=== PATIENT | male | born 1955 | race Caucasian/White ===

== ENCOUNTER → 2016-12-26 | Outpatient (CLI) | payer MEDICARE, BC, MEDICAID ==
[~2016-12-26] MED LIST: ASPIRIN325 MG PO; BRILINTA90 MG PO; CALCIUM500 MG PO; CELEBREX200 MG PO; CPAP INH; CRESTOR40 MG PO; DIOVAN40 MG PO; FEOSOL325 MG PO; K-TAB ER20 MEQ PO; LOVAZA1 GM PO; NEXIUM40 MG PO; PLAVIX75 MG PO; PRECOSE25 MG PO; STOOL SOFTENER100 MG PO; THERAGRAN-M1 TAB PO; TYLENOL EXTRA500 MG PO; VITAMIN D-32000 UNI1 PO; ZETIA10 MG PO
[2016-12-26 15:11] LABS: BASOPHIL # 0.1 K/uL (0.0-0.2); BASOPHIL % 1.1 %; EOSINOPHIL # 0.1 K/uL (0.0-0.5); HEMOGLOBIN 15.4 g/dL (11.0-16.0); IMMATURE GRANULOCYTE % 0.2 %; LYMPHOCYTE # 1.6 K/uL (0.8-4.0); LYMPHOCYTE % 29.2 %; MCH 30.7 pg (27.0-34.0); MCV 96.2 fl (83.0-98.0); MONOCYTE # 0.4 K/uL (0.0-1.0); MONOCYTE % 7.9 %; MPV 9.7 fl (9.4-12.4); NEUTROPHIL # (ANC) 3.2 K/uL (1.4-9.0); NEUTROPHIL % 59.6 %; NRBC % 0 /100WBC (0-0.00); RBC 5.02 M/uL (3.50-5.50); RDW-CV 13.7 % (11.9-14.6); WBC 5.4 K/uL (4.0-11.0)
[2016-12-26 15:12] LABS: HEMATOCRIT 48.3 % (37.0-53.0); MCHC 31.9 gm/dL (32.0-36.5); PLATELET COUNT 222 K/uL (150-450)
== END | disposition disaster alternative care site (69) ==
LOC: LCNC 15:08
PROVIDERS: Internal Medicine Interventional Cardiology
DX: R53.83 Other fatigue (principal)

== ENCOUNTER → 2016-12-30 | Outpatient (CLI) | payer MEDICARE, BC, MEDICAID ==
--- NOTE | ~2016-12-30 | ESTC ---
Cardiac Perfusion Imaging Demographics Patient Name DONNY Martinez Gender Male Patient Number [id number] Race Visit Number [id number] [place] [id number] Room Number Accession Number [id number] Height Date of 1955 Weight Age 61 year(s) BSA Referring Physician Lai Martinez MD BMI Interpreting Lai Martinez MD Date of study 12/30/2016 Physician Supervising /MLP Corby Davis APRN NM Technologist Ordering Physician Lai Martinez MD Stress Aleksandrtislisa Bowen RVT, electronic technician RDCS Stress ECG Reading Corby Davis APRN Nurse Jimenez Alvarado RN Physician The procedure was explained in detail to the patient. Risks, complications and alternative treatments were reviewed. Written consent was obtained. Medications Reviewed with Patient prior to Procedure. Procedure Procedure Type: Nuclear Stress Test:Exercise, Cardiolite Stress Test Procedure Start time: 12/30/2016 00:00 Indications: Chest pain. Risk Factors The patient risk factors include:prior PCI on 09/13/2016;prior CABG on 08/02/2010;family history of premature CAD. Conclusions Summary Cardiolite SPECT images demonstrate homogenous uptake of radioactive tracer. There is no evidence of inducible reversible defect and no evidence of underlying fixed defect. Normal TID ratio Gated images demonstrate normal left ventricular systolic function without inducible wall motion abnormalities. LVEF is 54% Stress Protocols Resting ECG Normal sinus rhythm. Resting HR:78 bpm Resting BP:118/62 mmHg Pre-stress physical exam: Patient assessed by eTre ESCOBAR prior to testing. Chest - CTA Cardio - RRR, S1, S2 Peak HR:135 bpm HR response: Appropriate Peak BP:154/70 mmHg BP response: Appropriate Predicted HR: 159 bpm HR/BP product:28915 % of predicted HR: 85 Test duration:10:00 min Test duration: 10:00 min Reason for termination:Target heart rate ECG Findings Arrhythmias Occasional PVC's Symptoms Chest pain - familiar Complications Procedure complication: None. Stress Interpretation Patient performed Fabricio protocol for 8 minutes through 3 stages. Appropriate hemodynamic response to exercise. No significant ST-T wave changes with exercise. EKG portion is negative for ischemia by diagnostic criteria. The Song Treadmill score was -1 .This corresponds to a moderate risk stress test. Will correlate with nuclear images. Imaging Results Summed scores - Summed stress score: 5 - Summed rest score: 8 - Summed difference score: -3 Stress ejection Ejection fraction:54 % EDV :121 ml ESV :56 ml Stroke volume :65 ml LV mass :160 gr Imaging Protocols Rest Stress Isotope:Tc99m Sestamibi IV Isotope: Tc99m Sestamibi IV Isotope dose:12.3 mCi Isotope dose:36.5 mCi Date:12/30/2016 07:00 Date:12/30/2016 08:33 Technique: SPECT Technique: Gated Supine SPECT Supine Scan Time:30 minutes post injection Scan Time:45-60 minutes post injection Medical History Admission Data Admission date: 12/30/2016 Admission Time: 06:43 Hospital Status: Outpatient. Signatures dtt: Juan Hoyt (cardio) dtd: 12/30/16 0000 Physician Self Edit
== END | disposition disaster alternative care site (69) ==
LOC: GRAD 06:43
DX: R07.9 Chest pain, unspecified (principal); Z98.61 Coronary angioplasty status; Z82.49 Family history of ischemic heart disease and other diseases of the circulatory system
CPT/HCPCS: A9500; J2785

== ENCOUNTER → 2017-01-04 | Outpatient (CLI) | payer MEDICARE, BC, MEDICAID ==
[2017-01-04 16:39] LABS: BASOPHIL % 0.6 %; EOSINOPHIL # 0.1 K/uL (0.0-0.5); EOSINOPHIL % 1.4 %; HEMATOCRIT 46.8 % (37.0-53.0); HEMOGLOBIN 15.1 g/dL (11.0-16.0); IMMATURE GRANULOCYTE % 0.3 %; LYMPHOCYTE # 1.5 K/uL (0.8-4.0); LYMPHOCYTE % 23.2 %; MCHC 32.3 gm/dL (32.0-36.5); MCV 96.1 fl (83.0-98.0); MONOCYTE # 0.5 K/uL (0.0-1.0); MONOCYTE % 7.7 %; MPV 10.1 fl (9.4-12.4); NEUTROPHIL # (ANC) 4.3 K/uL (1.4-9.0); NEUTROPHIL % 66.8 %; NRBC % 0 /100WBC (0-0.00); PLATELET COUNT 236 K/uL (150-450); RBC 4.87 M/uL (3.50-5.50); RDW-CV 13.7 % (11.9-14.6); WBC 6.5 K/uL (4.0-11.0)
[2017-01-04 16:47] LABS: ANION GAP 11.3 (10.0-19.0); BLOOD UREA NITROGEN 18 mg/dL (6-24); CALCIUM 8.4 mg/dL (8.5-10.5); CHLORIDE 109 mMol/L (96-110); CO2 29 mMol/L (22-32); ESTIMATED GFR (MDRD EQUATION) > 60; PHOSPHORUS 3.5 mg/dL (2.5-4.9); POTASSIUM 4.3 mMol/L (3.7-5.1); SODIUM 145 mMol/L (135-145)
== END | disposition disaster alternative care site (69) ==
LOC: LCNC 16:34 → LKCL 16:34
PROVIDERS: Internal Medicine Interventional Cardiology
DX: R07.9 Chest pain, unspecified (principal)

== ENCOUNTER 2017-01-09 06:42 | Outpatient (CLI) | payer MEDICARE, BC ==
[~2017-01-09] VITALS: Ht 180.3 cm; Wt 79.2 kg
--- NOTE | ~2017-01-09 | CATH ---
Cardiac Diagnostic Report Demographics Patient Name DONNY Martinez Gender Male Date of 1955 Age 61 year(s) Patient Number [id number] Date of Study 01/09/2017 Visit Number [id number] Room Number G63[address] [place] [id number] Ht 180.34 cm Wt 79.2 kg Referring Lai Martinez MD Primary Physician Physician Jatin Mas MD Performing Lai Martinez MD Secondary Physician Physician Diagnostic Lai Martinez MD Assisting Physician Physician Interventional Physician Nailhead Setter Physician Findings and Conclusions Diagnostic Findings and Conclusion 2 vessel CAD Patent RCA stent Patent HUMPHRIES to LAD Diagnostic Recommendations Medical therapy Procedure Description The patient was brought to the diagnostic cardiac catheterization-EP laboratory in the fasting, non-sedated state. Informed consent was obtained in the written and verbal form after the risks and benefits were explained. The patient had no further questions and agreed to proceed. The planned puncture-incision site(s) were shaved and prepped with ChloraPrep and draped in the usual sterile manner. Conscious sedation, supplemental oxygen, and pain control medications were delivered by a registered nurse under physician guidance. Surface ECG rhythm, blood pressure measurement, and pulse oximetry were monitored throughout the procedure. Arterial access. The access site was infiltrated with lidocaine. The vessel was entered with the Seldinger technique. A sheath was advanced into the vessel and used for catheter placement. Selective left coronary angiography. A catheter was advanced into the left coronary vessel ostium under Fluoroscopic guidance. Contrast was injected by hand. Images were obtained in multiple projections. Selective right coronary angiography. A catheter was advanced into the right coronary vessel ostium under fluoroscopic guidance. Contrast was injected by hand. Images were obtained in multiple projections. Selective HUMPHRISE graft angiography. A catheter was advanced into the left internal mammary graft ostium under fluoroscopic guidance. Contrast was injected by hand. Images were obtained in multiple projections. Selective SVG angiography. A catheter was advanced into the graft proximal anastomosis under fluoroscopic guidance. Contrast was injected by hand. Images were obtained in multiple projections. Left heart catheterization with ventriculography. A catheter was advanced across the aortic valve to the left ventricle under fluoroscopic guidance. Resting hemodynamics were obtained. With the catheter at the left ventricular apex, contrast was injected. Images were obtained in GRENADIAN projections. Post-ventriculography LV pressure was obtained. The catheter was gradually withdrawn into the aorta with continuous pressure recording. Arterial artery hemostasis. Hemostasis was achieved. The patient was transferred to a regular nursing floor via cart accompanied by a nurse. The patient left the laboratory in stable condition. Diagnostic Cath Status: Elective Procedure Procedure Type Diagnostic procedure:Ventriculogram:, Left, Angiography:, Coronary Angios Indications: Positive nuclear perfusion study. The procedure was explained in detail to the patient. Risks, complications and alternative treatments were reviewed. Written consent was obtained. Medications Reviewed with Patient prior to Procedure. Angiographic Findings Dominance: Right Cardiac Arteries and Lesion Findings LMCA: Normal (0% Stenosis).Medium, ok LAD: LAD has competitive flow Diagonal 1 small ok Lesion on Prox LAD: Ostial.75% stenosis . LCx: Normal (0% Stenosis).Circumflex medium, nondominant, normal OM 1 high takeoff, competitive RCA: Normal (0% Stenosis).RCA medium, dominant, patent stent PDA medium normalThere is a previous stent on Mid RCA. Cardiac Grafts - There is a Vein graft that originates at the Aorta Left and attaches to the 1st Ob Gracie (large, normal). - There is a HUMPHRIES graft that originates at the HUMPHRIES and attaches to the Mid LAD (Patent). Coronary Tree Procedure Data Procedure Date Date: 01/09/2017Start: 09:16 AMEnd: 09:54 AM Entry Locations - Retrograde Percutaneous access was performed through the Right Femoral artery (Primary location). A 6 Fr sheath was inserted. Hemostasis was successfully obtained using Perclose ProGlide (Metz). Closure Comments: Deployed by Daniel. Procedure Medications Order and Administration + + +-------+------+ !Time !Medication !Dosage !Route ! + + +-------+------+ !01/09/2017 09:07 AM !Fentanyl !25 mcg !I.V. ! + + +-------+------+ Devices Used - A6 Fr. BS JL 4 Diag. Catheterwas used for:Left coronary angiography. - A6 Fr. BS JR 4 Diag. Catheterwas used for:Right coronary angiography. - A6 Fr. BS IMT Diag. Catheterwas used for:HUMPHRIES. - A6 Fr. BS Angled Pigtail Diag. Catheterwas used for:Left ventriculography. Contrast Material - Isovue 65973 ml Fluoroscopy Time: Diagnostic: 8:00 minutes. Total: 8:00 minutes. Fluoroscopy Dose: Diagnostic: 858 mGy. Total: 858 mGy. Estimated Blood Loss: 4 ml. Medical History Allergies - Other:(niacin). - Other:(ethyl alcohol). - Morphine. - Codiene. - Other:(hydrocodone). - Antibiotics:(erythromycin). - Other:(simvastatin). - Latex. - Latex. - Morphine. Risk Factors The patient risk factors include:prior PCI on 11/11/2016; prior CABG on 08/03/2010;hypercholesterolemia, hypertension, family history of premature CAD, last creatinine: 1 mg/dl, creatinine clearance: 86.9 ml/min and dyslipidemia. Admission Data Admission Date: 01/09/2017 Admission Time: 06:42 AM Admit Source: Other Insurance Payors: Medicare. Admission Medications + +------+-------+ + + + + !Medication !Dosage!Times !Last !Last !Administered !Comments ! ! ! !Per Day!Delivery !Delivery ! ! ! ! ! ! !Date !Time ! ! ! + +------+-------+ + + + + !Aspirin ! ! ! ! !Yes ! ! !(any) ! ! ! ! ! ! ! + +------+-------+ + + + + !Clopidogrel! ! ! ! !Yes ! ! + +------+-------+ + + + + Clinical Evaluation Leading to Procedure - The patient's CAD presentation was assessed as: Unstable angina. - The patient's anginal syndrome during the past two weeks was assessed as: Class III according to the [place] Cardiovascular Society Classification System (CCS). VA LV function assessed as:Normal. Ejection Fraction - Method: LV gram. EF%: 55. Hemodynamics Condition: Rest O2 Consumption: Estimated: 214.59Heart Rate: 45 bpm Pressures (mmHg) +-----+ + !Site !Pressure ! +-----+ + !AO !137/61 (97) ! +-----+ + !AO !120/60 (86) ! +-----+ + !AO !124/60 (87) ! +-----+ + !LV !120/1 ,21 ! +-----+ + !LV !117/1 ,20 ! +-----+ + !LV !110/3 ,19 ! +-----+ + !LV !116/2 ,20 ! +-----+ + !AO !121/58 (83) ! +-----+ + !LV !117/2 ,20 ! +-----+ + Valve Gradients and Areas + +---------+---------+---------+ +---------+ + !Valve !Peak !Mean !Area !Index !Flow !Source ! + +---------+---------+---------+ +---------+ + !Aortic !0 !0 ! ! ! ! ! + +---------+---------+---------+ +---------+ + !Aortic !0 !0 ! ! ! ! ! + +---------+---------+---------+ +---------+ + Shunts Oxygen Values O2 Capacity 205.36 O2 Consumption 214.59 Discharge Data Discharge Date: 01/09/2017 Hospital Status: Outpatient Signatures dtt: Juan Hoyt (cardio) dtd: 01/09/17 0916 Physician Self Edit
== END 2017-01-09 13:18 | disposition disaster alternative care site (69) ==
LOC: GCAT 06:42 → GPCU 06:50 → GPOC 07:00 → GCAT 13:18
PROC: 4A023N7 Measurement of Cardiac Sampling and Pressure, Left Heart, Percutaneous Approach (ICD-10-PCS; principal; 2017-01-09)
PROC: B2151ZZ Fluoroscopy of Left Heart using Low Osmolar Contrast (ICD-10-PCS; principal; 2017-01-09)
PROC: B2111ZZ Fluoroscopy of Multiple Coronary Arteries using Low Osmolar Contrast (ICD-10-PCS; principal; 2017-01-09)
PROC: B2121ZZ Fluoroscopy of Single Coronary Artery Bypass Graft using Low Osmolar Contrast (ICD-10-PCS; principal; 2017-01-09)
PROC: B2181ZZ Fluoroscopy of Left Internal Mammary Bypass Graft using Low Osmolar Contrast (ICD-10-PCS; principal; 2017-01-09)
DX: I25.10 Atherosclerotic heart disease of native coronary artery without angina pectoris (principal); I10 Essential (primary) hypertension; E78.5 Hyperlipidemia, unspecified; R00.1 Bradycardia, unspecified; G47.33 Obstructive sleep apnea (adult) (pediatric); M19.072 Primary osteoarthritis, left ankle and foot; Z95.1 Presence of aortocoronary bypass graft; Z95.5 Presence of coronary angioplasty implant and graft; Z79.02 Long term (current) use of antithrombotics/antiplatelets; Z79.82 Long term (current) use of aspirin; Z79.899 Other long term (current) drug therapy; Z86.718 Personal history of other venous thrombosis and embolism; Z98.84 Bariatric surgery status; Z82.49 Family history of ischemic heart disease and other diseases of the circulatory system
CPT/HCPCS: C1760; J1644; J2001; J2250; J3010; J7030

== ENCOUNTER → 2017-01-23 | Outpatient (CLI) | payer MEDICARE, BC ==
[2017-01-23 15:54] LABS: BASOPHIL % 0.7 %; EOSINOPHIL # 0.1 K/uL (0.0-0.5); EOSINOPHIL % 1.6 %; HEMATOCRIT 45.9 % (37.0-53.0); HEMOGLOBIN 14.5 g/dL (11.0-16.0); IMMATURE GRANULOCYTE % 0.2 %; LYMPHOCYTE # 1.4 K/uL (0.8-4.0); LYMPHOCYTE % 25.5 %; MCH 30.9 pg (27.0-34.0); MCHC 31.6 gm/dL (32.0-36.5); MCV 97.9 fl (83.0-98.0); MONOCYTE # 0.5 K/uL (0.0-1.0); MPV 10.4 fl (9.4-12.4); NEUTROPHIL # (ANC) 3.6 K/uL (1.4-9.0); NRBC % 0 /100WBC (0-0.00); PLATELET COUNT 193 K/uL (150-450); RBC 4.69 M/uL (3.50-5.50); RDW-CV 13.8 % (11.9-14.6); WBC 5.6 K/uL (4.0-11.0)
[2017-01-23 16:05] LABS: BLOOD UREA NITROGEN 21 mg/dL (6-24); CALCIUM 8.9 mg/dL (8.5-10.5); CHLORIDE 107 mMol/L (96-110); CO2 29 mMol/L (22-32); CREATININE 0.9 mg/dL (0.6-1.3); ESTIMATED GFR (MDRD EQUATION) > 60; PHOSPHORUS 3.8 mg/dL (2.5-4.9); SODIUM 143 mMol/L (135-145)
== END ==
LOC: LCNC 15:39
PROVIDERS: Internal Medicine Interventional Cardiology
DX: I25.10 Atherosclerotic heart disease of native coronary artery without angina pectoris (principal); R53.83 Other fatigue